=== PATIENT | male | born 1970 | race Caucasian/White ===

== ENCOUNTER → 2017-02-08 | Day surgery (SDC) | payer OTHER ==
[~2017-02-08] MED LIST: ACETAMINOPHEN PO; BLOOD PRESSURE PO; CIPRO PO; FLOMAX0.4 M1 PO; LIPITOR20 MG PO; PAXIL30 MG PO; PERCOCET 5-3251 TAB PO; PHENERGAN25 MG PO; RISPERDAL0.5 MG PO
--- NOTE | ~2017-02-08 | OR ---
Unit #: [id number] #: [id number] Patient: CIRO TAMAYO [id number] [address] [place], [place] [address] [id number] MR#: [id number] NAME: CIRO TAMAYO ROOM: Date of Procedure: 02/08/2017 Admission Date: 02/08/2017 Surgeon: Javi Garnica M.D. : 1970 Attending Physician: Javi Garnica M.D. Referring Physician: Javi Garnica M.D. [facility] REPORT PREOPERATIVE DIAGNOSES Thoracic disk disease, thoracic back pain, thoracic radiculopathy. POSTOPERATIVE DIAGNOSES Thoracic disk disease, thoracic back pain, thoracic radiculopathy. PROCEDURE PERFORMED Thoracic epidural steroid injection with intravenous sedation and fluoroscopic guidance for needle localization. INDICATIONS FOR PROCEDURE The patient is a 46-year-old male injured by the 10 foot fall off a roof through the porch. He states the pain is mid back, approximately mid scapula level with intermittent radicular shooting type pains, worse to the left than the right. He had similar symptoms a bit over 20 years ago following another injury and after failing conservative measures, settled very well with epidural steroids. Workup was demonstrated some moderate mid thoracic disk disease. He has failed to settle with rehab, oral anti-inflammatories, steroids or time. Based on history, pathology, symptomatology, and treatment options, plan is for a trial of thoracic epidural steroid injection. Again, risks and benefits of all which have been reviewed. DESCRIPTION OF PROCEDURE The patient was placed in a seated position. Standard monitors were applied. 2 mg of Versed were given for sedation and anxiolysis, which were adequate. Vital signs remained stable. Sterile prep and drape then of the thoracic area was performed. The skin then to the right of midline at the T6 level was localized with 1% lidocaine. An 18-gauge Sales Beachtead needle was then advanced via right paramedian approach with loss of resistance technique in toward the epidural space. After confirming proper positioning with fluoroscopy and radiographic contrast, 80 mg of Depo-Medrol and 4 mL of 0.125% bupivacaine were deposited. The patient tolerated the procedure otherwise well and was discharged to the recovery room in stable condition. Dictated by... Benson Simmons/hetal Unit #: [id number] #: [id number] Patient: CIRO TAMAYO TD: 02/09/2017 05:12 JOB #: [id number] OPERATIVE REPORT X Javi Garnica MD X PROCEDURE OPERATIVE NOTE
== END | disposition home or self-care (01) ==
LOC: CCSC 08:37
DX: M51.14 Intervertebral disc disorders with radiculopathy, thoracic region (principal)
CPT/HCPCS: J1040; J2250

== ENCOUNTER 2017-05-16 15:19 | Emergency (ER) | payer OTHER ==
--- NOTE | ~2017-05-16 | CT4 ---
[facility] A Service of [facility] RADIOLOGY TEXT RESULTS PATIENT: CIRO TAMAYO LOCATION: [facility] : 70 UNIT #: [id number] AGE: [address]: Donald Thibodeaux MD SEX: M ORDER DR: [id number] [place], [place] [address] [id number] MR#: [id number] Acc #: [id number] NAME: CIRO TAMAYO. : 1970 SEX: M STUDY DATE/TIME: 05/16/2017 16:55 UNIT: [facility] ROOM: STUDY DESCRIPTION: CT Abd and Pelv Wo Cont Attending Physician: Donald Thibodeaux M.D. Ordering Physician: Donald Thibodeaux M.D. MEDICAL IMAGING REPORT This report is preliminary unless electronic signature is present EXAM CT abdomen and pelvis without contrast INDICATIONS Left flank pain since this morning. TECHNIQUE Unenhanced CT of the abdomen and pelvis. This CT exam was performed with one or more of the following radiation dose reduction techniques: automatic exposure control, adjustment of mA and/or kV according to patient size, and iterative reconstruction. COMPARISON 03/27/2013. FINDINGS ABDOMEN WITHOUT CONTRAST: Included lung bases clear. Mild diffuse hepatic steatosis. The spleen, kidneys, adrenal glands, pancreas and gallbladder have an unremarkable unenhanced appearance. Bowel loops non-dilated. Appendix is normal. No radiodense urinary system calculus. PELVIS WITHOUT CONTRAST: No radiodense bladder calculus. No pelvic mass or fluid. No aggressive appearing bone lesion. IMPRESSION 1. No acute findings. No radiodense urinary system calculus or hydronephrosis. 2. Mild hepatic steatosis. [facility] A Service of [facility] RADIOLOGY TEXT RESULTS PATIENT: CIRO TAMAYO LOCATION: [facility] : 70 UNIT #: [id number] AGE: [address]: Donald Thibodeaux MD SEX: M ORDER DR: Dictated by... Johann Nelson M.D. THIS IS AN ELECTRONICALLY VERIFIED REPORT Johann Nelson M.D. at 05/17/2017 10:09 AM SHREYA/ev TD: 05/16/2017 17:30 JOB #: [id number] MEDICAL IMAGING REPORT Page 1 of 1 COPY
--- NOTE | ~2017-05-16 | CO ---
Unit #: [id number] #: [id number] Patient: CIRO TAMAYO [id number] [facility] [address]. [place], [place] [address] [id number] MR#: [id number] NAME: CIRO TAMAYO ROOM: Age: 47 Sex: M Admission Date: 05/16/2017 : 1970 Attending Physician: Donald Rodgers M.D. Primary Care Physician: [facility] Consultation Date: 05/16/2017 CONSULTATION REPORT REASON FOR CONSULTATION Priapism. HISTORY OF PRESENT ILLNESS This 47-year-old man presented to the [facility] emergency department with priapism. It has never happened before. He awakened at 5:00 a.m. with a morning erection which is not rare, but it persisted and by 9 or 10 in morning, it was painful. He finally presented to [facility] and checked in at 3:19 p.m. I saw him shortly before 5 o'clock after being called from downtown and he had fortunately been administered 3 doses of terbutaline 0.25 mg subcutaneously and his erection subsided. Seen him just about that time, I have returned to see him again and the erection has remained subsided now for about 1 hour. It is tender and the penis feels fibrotic, but there is definitely no erection. The patient smokes marijuana, but has not used it lately. He takes medications listed below, but in particular had a lapse in his Enpresse, so doubled up on it yesterday and this may be of significance. He also complained of some left-sided pain which he like into passing a stone and for this had a CT scan. It shows no stones and is essentially normal, done without contrast. His pain was probably due to the need to defecate as he had to leave during my discussion with him to do so. PAST MEDICAL HISTORY Hypertension, hyperlipidemia, PTSD, depression. PAST SURGICAL HISTORY Herniorrhaphy. MEDICATIONS Cozaar, Lipitor, Paxil, Enpresse. ALLERGIES None known. FAMILY HISTORY Negative for prostate cancer. SOCIAL HISTORY He smokes tobacco and occasionally marijuana. REVIEW OF SYSTEMS Positive for depression and anxiety. Unit #: [id number] #: [id number] Patient: CIRO TAMAYO PHYSICAL EXAMINATION GENERAL: The patient is alert, fairly comfortable, mildly anxious to go home. ABDOMEN: Soft, full. GENITALIA: Phallus, circumcised of generally normal appearance. No erythema, but tender with fibrotic, feeling corpora. No engorgement. Normal glans and meatus. No ecchymosis. Testes and epididymides normal descended. EXTREMITIES: No edema. NEUROLOGIC: Intact. DIAGNOSTIC STUDIES LABORATORY RESULTS: None. IMPRESSION Priapism has fortunately resolved. Review of medications suggests most likely due to Enpresse, although Cozaar and Paxil have been known to cause it also. PLAN The patient is advised to avoid marijuana and discontinue Enpresse until followup with primary care Sunday. They can further review his medications. He should return to the emergency department promptly should his priapism recur. Dictated by... Enrrique Gutierrez M.D. MARCIE/hetal TD: 05/17/2017 06:56 JOB #: [id number] CONSULTATION REPORT Page 1 of 1 X Enrrique Gutierrez MD X CONSULTATION REPORT
[2017-05-16 16:16] LABS: BASOPHIL# 0.1 X10e3 (0-0.3); BASOPHIL% 0.5 % (0-2.5); EOSINOPHIL% 0.3 % (0.0-7.0); HEMATOCRIT 48.8 % (38.0-50.0); HEMOGLOBIN 16.7 gm/dL (13.0-16.0); LYMPHOCYTE# 2.9 X10e3 (1.0-3.5); MEAN CELL VOLUME 88.9 FL (83-96); MEAN CORPUSCULAR HEMOGLOBIN 30.4 PG (28-34); MEAN CORPUSCULAR HGB CONC 34.2 g/dL (30-36); MEAN PLATELET VOLUME 8.7 FL (6.5-11.5); MONOCYTE# 0.8 X10e3 (0-1.0); MONOCYTE% 5.7 % (3.0-12.0); NEUTROPHIL# 10.7 X10e3 (1.5-7.1); NEUTROPHIL% 73.5 % (40-75); PLATELET COUNT 260 X10e3 (140-420); RED BLOOD COUNT 5.49 X10e (3.90-5.60); RED CELL DISTRIBUTION WIDTH 12.7 % (11.0-15.5); WHITE BLOOD COUNT 14.5 X10e3 (4.0-10.5)
[2017-05-16 16:17] LABS: DIFF IND NO
[2017-05-16 16:59] LABS: URINE SOURCE CLEAN CATCH
[2017-05-16 17:05] LABS: URINE APPEARANCE CLEAR; URINE BILIRUBIN NEG (NEG); URINE BLOOD 2+ (NEG); URINE COLOR YELLOW; URINE GLUCOSE NEG (NEG); URINE KETONE NEG (NEG); URINE LEUKOCYTE ESTERASE NEG (NEG); URINE NITRATE NEG (NEG); URINE PROTEIN TRACE (NEG); URINE SPECIFIC GRAVITY 1.015 (1.003-1.035); URINE UROBILINOGEN 0.2 MG/DL (NEG)
[2017-05-16 17:08] LABS: URINE BACTERIA AUWI NEG (NEGATIVE); URINE SQUAMOUS EPITHELIAL CELL NONE SEEN /[HPF]; UWBCS1 AUWI 0-2 (0-5)
[2017-05-16 17:15] LABS: CULTURE INDICATED? NO
[2017-05-16 17:18] LABS: ALBUMIN SERUM 5.1 g/dL (3.5-5.0); BILIRUBIN, DIRECT 0.1 mg/dL (0.0-0.2); BILIRUBIN,INDIRECT 0.9 mg/dL (0.0-0.9); BUN/CREATININE RATIO 13.33; CALCIUM SERUM 9.8 mg/dL (8.4-10.2); CREATININE SERUM 0.9 mg/dL (0.6-1.4); GLOM FILT RATE Estimated 101.4 mL/min (>60); POTASSIUM 4.2 mmol/L (3.5-5.1); PROTEIN TOTAL SERUM 7.5 g/dL (6.0-8.3)
== END 2017-05-16 18:44 | disposition home or self-care (01) ==
LOC: CED 15:19
PROVIDERS: Emergency Medicine
DX: N48.30 Priapism, unspecified (principal); Z87.442 Personal history of urinary calculi
CPT/HCPCS: 74176; 80048; 80076; 81003; 85025; 96372; 96374; 99291; J0171; J1170; J2370; J3105